=== PATIENT | female | born 1980 | race Caucasian/White ===

== ENCOUNTER 2018-12-20 12:22 | Inpatient (IN) | payer BC ==
[2018-12-20] MEDS: ACCU-CHEK XX ×2 (16:11→19:38)
[2018-12-20] MEDS: DOCUSATE SODIUM 100 MG CAP PO (16:15)
[2018-12-20] MEDS: INSULIN ASPART [NOVOLOG] 3 ML PEN SC ×2 (17:05→21:10)
[2018-12-20 19:22] LABS: ADD MAN DIFF? NO
[2018-12-20 19:24] LABS: WHITE BLOOD COUNT 9.2 10^3/ul (4.8-10.8)
[2018-12-20 19:24] LABS: BASOPHILS % 0.3 % (0.0-2.0); EOSINOPHILS # 0.1 10^3/ul (0.0-0.5); EOSINOPHILS % 1.5 % (0.0-7.0); HEMATOCRIT 35.9 % (37.0-47.0); HEMOGLOBIN 12.1 g/dl (12.0-16.0); LYMPHOCYTES # 2.1 10^3/ul (0.8-2.9); LYMPHOCYTES % 22.5 % (15.0-51.0); MEAN CORPUSCULAR HEMOGLOBIN 31.3 pg (29.0-33.0); MEAN CORPUSCULAR HGB CONC 33.7 g/dl (32.0-37.0); MEAN CORPUSCULAR VOLUME 92.8 fl (82.0-101.0); MEAN PLATELET VOLUME 9.7 fl (7.4-10.4); MONOCYTE # 0.6 10^3/ul (0.3-0.9); NEUTROPHIL # 6.3 10^3/ul (1.6-7.5); NEUTROPHILS % 68.9 % (39.0-77.0); PLATELET COUNT 197 10^3/UL (140-415); RED BLOOD COUNT 3.87 10^6/ul (4.20-5.40); RED CELL DISTRIBUTION WIDTH 12.6 % (11.5-14.5)
[2018-12-20 19:42] LABS: ALANINE AMINOTRANSFERASE 10 IU/L (13-69); ALBUMIN 3.5 g/dl (3.3-4.9); ALBUMIN/GLOBULIN RATIO 1.02; ALKALINE PHOSPHATASE 76 IU/L (42-121); ANION GAP 8 (5-13); ASPARTATE AMINO TRANSFERASE 17 IU/L (15-46); BILIRUBIN,INDIRECT 0.1 mg/dl (0-1.1); BILIRUBIN,TOTAL 0.1 mg/dl (0.2-1.3); BLOOD UREA NITROGEN 9 mg/dl (7-20); CALCIUM 9.7 mg/dl (8.4-10.2); CARBON DIOXIDE 24 mmol/L (21-31); CHLORIDE 103 mmol/L (97-110); CREATININE 0.48 mg/dl (0.44-1.00); Estimated GFR > 60 mL/min (>60); GLUCOSE 154 mg/dl (70-220); POTASSIUM 3.8 mmol/L (3.5-5.1); SODIUM 135 mmol/L (135-144); TOTAL PROTEIN 6.9 g/dl (6.1-8.1)
[2018-12-21] MEDS: INSULIN ASPART [NOVOLOG] 3 ML PEN SC ×4 (07:05→21:00)
[2018-12-21] MEDS: ACCU-CHEK XX ×4 (07:40→19:54)
[2018-12-21] MEDS: PRENATAL VITAMIN PO (09:16)
[2018-12-21] MEDS: DOCUSATE SODIUM 100 MG CAP PO (09:16)
[2018-12-21 14:12] LABS: COLLECTION PERIOD 24 hrs
[2018-12-21 16:46] LABS: CREATININE,URINE RANDOM 54.49 mg/dl (20-320)
[2018-12-21 16:48] LABS: 24HR URINE TOTAL PROTEIN 266.5 mg/24hrs (42.0-225.0); COLLECTION PERIOD 24 hrs; VOLUME 2050 ml/24hrs; VOLUME 2050 mls
[2018-12-21 16:49] LABS: CREATININE CLEARANCE 161.6 mls/min (84.0-162.0); SCRET 0.48 mg/dl (0.44-1.00)
[2018-12-21] MEDS: NPH, HUMAN INSULIN ISOPHANE 3ML VIAL SC (21:36)
[2018-12-22] MEDS: ACCU-CHEK XX ×4 (06:00→19:35)
[2018-12-22] MEDS: INSULIN ASPART [NOVOLOG] 3 ML PEN SC ×4 (07:05→17:15)
[2018-12-22] MEDS: DOCUSATE SODIUM 100 MG CAP PO (09:01)
[2018-12-22] MEDS: PRENATAL VITAMIN PO (09:01)
[2018-12-22] MEDS ORDERED: INSULIN LISPRO 100 UNIT/ML VIAL SC (17:05)
[2018-12-22] MEDS: INSULIN ISOPHANE (NPH) 10 ML INJ SC (21:22)
[2018-12-23] MEDS: ACCU-CHEK XX ×4 (07:47→20:31)
[2018-12-23] MEDS: INSULIN ISOPHANE (NPH) 10 ML INJ SC ×2 (08:10→21:18)
[2018-12-23] MEDS: INSULIN ASPART [NOVOLOG] 3 ML PEN SC ×2 (08:11→17:37)
[2018-12-23] MEDS: PRENATAL VITAMIN PO (10:40)
[2018-12-23] MEDS: DOCUSATE SODIUM 100 MG CAP PO (10:40)
[2018-12-24] MEDS: ACCU-CHEK XX ×2 (07:31→11:03)
[2018-12-24] MEDS: DOCUSATE SODIUM 100 MG CAP PO (08:40)
[2018-12-24] MEDS: PRENATAL VITAMIN PO (08:40)
[2018-12-24] MEDS: INSULIN ISOPHANE (NPH) 10 ML INJ SC (08:42)
[2018-12-24] MEDS: INSULIN ASPART [NOVOLOG] 3 ML PEN SC (08:43)
== END 2018-12-24 15:41 | disposition home or self-care (01) | DRG 833 ==
LOC: OBT 12:22 → PP1 12-22 22:16 → L-D 12:22 → OBT 12:22 → L-D 12:32
PROVIDERS: Obstetrics & Gynecology
DX: O24.311 Unspecified pre-existing diabetes mellitus in pregnancy, first trimester (principal); E11.65 Type 2 diabetes mellitus with hyperglycemia; Z3A.13 13 weeks gestation of pregnancy; Z79.4 Long term (current) use of insulin
CPT/HCPCS: 80053; 82575; 82962; 84156; 85025

== ENCOUNTER 2019-06-18 12:00 | Inpatient (IN) | payer BC ==
[2019-06-18] MEDS ORDERED: METHYLERGONOVINE 0.2 MG INJ IM ×2 (12:30→21:00)
[2019-06-18] MEDS ORDERED: CARBOPROST 250 MCG INJ IM ×2 (12:30→21:00)
[2019-06-18] MEDS ORDERED: CEFAZOLIN 2 GM/50 ML (PMX) 50 ML IVPB (12:30)
[2019-06-18] MEDS ORDERED: OXYTOCIN 30 UNITS/LR 500 ML IV ×3 (12:30→21:00)
[2019-06-18] MEDS ORDERED: MISOPROSTOL 200 MCG TAB PR ×2 (12:30→21:00)
[2019-06-18] MEDS: LACTATED RINGER'S 1,000 ML IV ×3 (12:35→20:55)
[2019-06-18 12:39] LABS: ADD MAN DIFF? NO
[2019-06-18 12:44] LABS: WHITE BLOOD COUNT 8.2 10^3/ul (4.8-10.8)
[2019-06-18 12:44] LABS: BASOPHILS % 0.4 % (0.0-2.0); EOSINOPHILS # 0.1 10^3/ul (0.0-0.5); EOSINOPHILS % 1.3 % (0.0-7.0); HEMATOCRIT 39.4 % (37.0-47.0); HEMOGLOBIN 13.1 g/dl (12.0-16.0); LYMPHOCYTES # 1.5 10^3/ul (0.8-2.9); LYMPHOCYTES % 18.3 % (15.0-51.0); MEAN CORPUSCULAR HGB CONC 33.2 g/dl (32.0-37.0); MEAN CORPUSCULAR VOLUME 93.1 fl (82.0-101.0); MEAN PLATELET VOLUME 11.7 fl (7.4-10.4); MONOCYTE # 0.5 10^3/ul (0.3-0.9); MONOCYTES % 5.5 % (0.0-11.0); NEUTROPHIL # 6.1 10^3/ul (1.6-7.5); NEUTROPHILS % 73.9 % (39.0-77.0); PLATELET COUNT 154 10^3/UL (140-415); RED BLOOD COUNT 4.23 10^6/ul (4.20-5.40); RED CELL DISTRIBUTION WIDTH 14.4 % (11.5-14.5)
[2019-06-18 13:06] LABS: INR 0.82; PARTIAL THROMBOPLASTIN TIME 25.6 Sec (23.0-35.0); PROTIME 11.4 Sec (11.9-14.9); PT RATIO 0.9
[2019-06-18 13:35] LABS: HEPATITIS B SURFACE ANTIGEN NEGATIVE (NEGATIVE)
[2019-06-18 14:32] LABS: GLUCOSE 99 mg/dl (70-220)
[2019-06-18] MEDS ORDERED: AZITHROMYCIN 500MG/NS (PMX) 250 ML (14:54)
[2019-06-18] MEDS: METOCLOPRAMIDE 10 MG INJ IV (14:59)
[2019-06-18] MEDS: FAMOTIDINE 20 MG INJ IV (14:59)
[2019-06-18] MEDS: CITRIC ACID/NA CITRATE 30 ML CUP PO (14:59)
[2019-06-18] MEDS: AZITHROMYCIN 500MG/NS (PMX) 250 ML IVPB (15:00)
[2019-06-18] MEDS ORDERED: morphine SULFATE/PF (10 MG/10 ML) INJ (15:38)
[2019-06-18] MEDS ORDERED: KETOROLAC 30 MG INJ IV (16:00)
[2019-06-18] MEDS ORDERED: MEPERIDINE 25 MG INJ IV (16:00)
[2019-06-18] MEDS ORDERED: FENTAnyl 50 MCG/ML VIAL IV ×3 (16:00)
[2019-06-18] MEDS ORDERED: DIPHENHYDRAMINE 50 MG INJ IV ×2 (16:00→18:30)
[2019-06-18] MEDS ORDERED: HYDROmorphONE 1 MG/5 ML IV SYRINGE IV ×3 (16:00)
[2019-06-18] MEDS ORDERED: PROCHLORPERAZINE 10 MG INJ IV (16:00)
[2019-06-18] MEDS ORDERED: ONDANSETRON 4 MG INJ IV ×2 (16:00→18:30)
[2019-06-18] MEDS ORDERED: ONDANSETRON 4 MG INJ (16:15)
[2019-06-18] MEDS ORDERED: PHENYLephrine (100 MCG/ML) 10ML SYG (16:19)
[2019-06-18] MEDS: KETOROLAC 30 MG INJ IV (17:03)
[2019-06-18] MEDS: OXYTOCIN 30 UNITS/LR 500 ML IV ×2 (17:20→20:40)
[2019-06-18] MEDS ORDERED: ACETAMINOPHEN 325 MG TAB PO (17:30)
[2019-06-18] MEDS ORDERED: NALOXONE (0.4 MG/ML) INJ IV (18:30)
[2019-06-18] MEDS ORDERED: ZOLPIDEM 5 MG TAB PO (18:30)
[2019-06-18] MEDS ORDERED: HYDROmorphONE 0.5 MG/0.5 ML SYG IV ×2 (18:30)
[2019-06-18] MEDS ORDERED: GLUCOSE GEL 15 GRAM TUBE PO ×2 (20:30)
[2019-06-18] MEDS ORDERED: metFORMIN 500 MG TAB PO (20:30)
[2019-06-18] MEDS ORDERED: DEXTROSE 50% 50 ML SYRINGE IV ×2 (20:30)
[2019-06-18] MEDS ORDERED: GLUCAGON 1 MG INJ IM (20:30)
[2019-06-18] MEDS ORDERED: GLUCOSE GEL 15 GRAM TUBE BUCCAL (20:30)
[2019-06-18 20:31] LABS: RAPID PLASMA REAGIN NONREACTIVE (NR)
[2019-06-18] MEDS ORDERED: OXYCODONE/ACETAMINOPHEN (5/325) TAB PO (21:00)
[2019-06-18] MEDS ORDERED: metFORMIN (XR) 500 MG TAB PO (21:00)
[2019-06-18] MEDS ORDERED: NA PHOSPHATE/BIPHOS 133 ML ENEMA PR (21:00)
[2019-06-18] MEDS: INSULIN ASPART [NOVOLOG] 3 ML PEN SC (21:00)
[2019-06-18] MEDS ORDERED: LANOLIN HPA 1 PKT TOP (21:00)
[2019-06-18] MEDS: SENNA/DOCUSATE NA (8.6MG/50MG) TAB PO (21:51)
[2019-06-18] MEDS: IBUPROFEN 800 MG TAB PO (22:00)
[2019-06-18] MEDS: metFORMIN 500 MG TAB PO (22:11)
[2019-06-18] MEDS: CEFAZOLIN 2 GM/50 ML (PMX) 50 ML IVPB (22:15)
[2019-06-18] MEDS: INSULIN GLARGINE [LANTus] (100 UNITS/ML) SYG SC (22:24)
[2019-06-18] MEDS: CLINDAMYCIN 300 MG CAP PO (23:44)
[2019-06-19] MEDS ORDERED: ACCU-CHEK XX ×2 (02:00→09:35)
[2019-06-19] MEDS: LACTATED RINGER'S 1,000 ML IV ×2 (04:18→10:00)
[2019-06-19] MEDS: CEFAZOLIN 2 GM/50 ML (PMX) 50 ML IVPB ×2 (05:17→13:18)
[2019-06-19] MEDS: CLINDAMYCIN 300 MG CAP PO ×4 (05:56→23:40)
[2019-06-19] MEDS: IBUPROFEN 800 MG TAB PO ×3 (06:00→21:57)
[2019-06-19] MEDS ORDERED: INSULIN REGULAR, HUMAN 100 UNIT/1 ML 3ML VIAL SC (07:00)
[2019-06-19] MEDS ORDERED: NPH, HUMAN INSULIN ISOPHANE 3ML VIAL SC (08:00)
[2019-06-19] MEDS ORDERED: INSULIN GLARGINE [LANTus] (100 UNITS/ML) SYG SC ×2 (08:00)
[2019-06-19] MEDS: INSULIN ASPART [NOVOLOG] 3 ML PEN SC ×4 (08:05→21:00)
[2019-06-19 08:22] LABS: ADD MAN DIFF? NO
[2019-06-19 08:31] LABS: WHITE BLOOD COUNT 11.4 10^3/ul (4.8-10.8)
[2019-06-19 08:31] LABS: BASOPHILS % 0.2 % (0.0-2.0); EOSINOPHILS % 0.1 % (0.0-7.0); HEMATOCRIT 32.2 % (37.0-47.0); HEMOGLOBIN 10.8 g/dl (12.0-16.0); LYMPHOCYTES # 1.2 10^3/ul (0.8-2.9); LYMPHOCYTES % 10.7 % (15.0-51.0); MEAN CORPUSCULAR HEMOGLOBIN 31.4 pg (29.0-33.0); MEAN CORPUSCULAR HGB CONC 33.5 g/dl (32.0-37.0); MEAN CORPUSCULAR VOLUME 93.6 fl (82.0-101.0); MEAN PLATELET VOLUME 11.5 fl (7.4-10.4); MONOCYTE # 0.6 10^3/ul (0.3-0.9); MONOCYTES % 5.4 % (0.0-11.0); NEUTROPHIL # 9.5 10^3/ul (1.6-7.5); NEUTROPHILS % 83.2 % (39.0-77.0); PLATELET COUNT 124 10^3/UL (140-415); RED BLOOD COUNT 3.44 10^6/ul (4.20-5.40)
[2019-06-19] MEDS: SENNA/DOCUSATE NA (8.6MG/50MG) TAB PO ×2 (08:34→21:00)
[2019-06-19] MEDS: ACCU-CHEK XX ×4 (08:43→20:05)
[2019-06-19 08:55] LABS: ALANINE AMINOTRANSFERASE 24 IU/L (13-69); ALBUMIN 2.4 g/dl (3.3-4.9); ALKALINE PHOSPHATASE 134 IU/L (42-121); ANION GAP 3 (5-13); ASPARTATE AMINO TRANSFERASE 26 IU/L (15-46); BILIRUBIN,INDIRECT 0.6 mg/dl (0-1.1); BILIRUBIN,TOTAL 0.6 mg/dl (0.2-1.3); BLOOD UREA NITROGEN 6 mg/dl (7-20); CALCIUM 8.7 mg/dl (8.4-10.2); CARBON DIOXIDE 25 mmol/L (21-31); CHLORIDE 104 mmol/L (97-110); CREATININE 0.47 mg/dl (0.44-1.00); Estimated GFR > 60 mL/min (>60); GLUCOSE 72 mg/dl (70-220); POTASSIUM 3.6 mmol/L (3.5-5.1); SODIUM 132 mmol/L (135-144); TOTAL PROTEIN 5.4 g/dl (6.1-8.1)
[2019-06-19] MEDS: metFORMIN 500 MG TAB PO ×2 (08:55→18:16)
[2019-06-19 09:03] LABS: HEMOGLOBIN A1C 6.8 % (0-5.9)
[2019-06-19] MEDS: KETOROLAC 30 MG INJ IV (09:17)
[2019-06-19 10:02] LABS: HEPATITIS C VIRAL ANTIBODY NEGATIVE (NEGATIVE)
[2019-06-19] MEDS: HYDROCODONE/APAP (5/325) TAB PO (16:43)
[2019-06-19] MEDS: BISACODYL 10 MG SUPP PR (17:14)
[2019-06-19] MEDS: INSULIN GLARGINE [LANTus] (100 UNITS/ML) SYG SC (21:00)
[2019-06-20] MEDS: IBUPROFEN 800 MG TAB PO ×3 (05:34→21:45)
[2019-06-20] MEDS: CLINDAMYCIN 300 MG CAP PO ×4 (05:35→23:36)
[2019-06-20] MEDS: ACCU-CHEK XX ×4 (08:00→20:48)
[2019-06-20] MEDS: SENNA/DOCUSATE NA (8.6MG/50MG) TAB PO ×2 (08:15→20:47)
[2019-06-20] MEDS: metFORMIN 500 MG TAB PO ×2 (08:15→17:54)
[2019-06-20] MEDS: INSULIN ASPART [NOVOLOG] 3 ML PEN SC ×4 (13:00→21:00)
[2019-06-21] MEDS: IBUPROFEN 800 MG TAB PO ×2 (05:49→13:44)
[2019-06-21] MEDS: CLINDAMYCIN 300 MG CAP PO ×3 (05:49→18:04)
[2019-06-21] MEDS: ACCU-CHEK XX ×3 (07:30→14:30)
[2019-06-21] MEDS: INSULIN ASPART [NOVOLOG] 3 ML PEN SC ×3 (08:05→18:05)
[2019-06-21] MEDS: SENNA/DOCUSATE NA (8.6MG/50MG) TAB PO (08:44)
[2019-06-21] MEDS: metFORMIN 500 MG TAB PO ×2 (08:45→18:07)
[2019-06-21] MEDS: MEASLES,MUMPS,RUBELLA VACCINE INJ SC* (09:00)
[2019-06-21] MEDS: DIPHTH/TET/ACEL PERTUSS (ADULT) 0.5 ML VIAL IM* (11:51)
== END 2019-06-21 20:00 | disposition home or self-care (01) | DRG 783 ==
LOC: L-D 12:00 → PP1 20:29
PROVIDERS: Obstetrics & Gynecology
PROC: 10D00Z1 Extraction of Products of Conception, Low, Open Approach (ICD-10-PCS; principal; 2019-06-18 14:00)
PROC: 0UT70ZZ Resection of Bilateral Fallopian Tubes, Open Approach (ICD-10-PCS; 2019-06-18 14:00)
DX: O65.5 Obstructed labor due to abnormality of maternal pelvic organs (principal); O24.12 Pre-existing type 2 diabetes mellitus, in childbirth; O34.211 Maternal care for low transverse scar from previous cesarean delivery; E11.9 Type 2 diabetes mellitus without complications; Z3A.39 39 weeks gestation of pregnancy; Z37.0 Single live birth; Z79.4 Long term (current) use of insulin; Z30.2 Encounter for sterilization
CPT/HCPCS: 80053; 82947; 82962; 83036; 84443; 85025; 85610; 85730; 86592; 86803; 86850; 86900; 86901; 87340; 88302; 90715; 99464